=== PATIENT | male | born 1995 | race Caucasian/White ===

== ENCOUNTER 2018-01-06 18:23 | Emergency (ER) | payer OTHER ==
[2018-01-06] MEDS ORDERED: Sodium Chloride 0.9% 1,000 ML IV ONE (19:54)
[2018-01-06] MEDS ORDERED: Ondansetron 4 MG/2 ML SDV IV ONE (19:56)
[2018-01-06 20:30] LABS: ANION GAP 17.2
--- NOTE | 2018-01-06 21:01 | EDM.PDOC ---
ED HPI GENERAL MEDICAL PROBLEM - General Chief Complaint: Exposure to Heat or Cold Stated Complaint: HEET INJURY Time Seen by Provider: 01/06/18 20:15 Source of Information: Reports: Patient History Limitations: Reports: No Limitations - History of Present Illness INITIAL COMMENTS - FREE TEXT/NARRATIVE: c/o still feeling weak, nausea improved from presentation, [employer], training exercise today, ran 6 miles collapsed after, Temp reported to have been 103, 2 liters IVF given at Camp then sent to ED, Muscle cramps still, but better. - Related Data Allergies Allergy/AdvReac Type Severity Reaction Status Date / Time No Known Allergies Allergy Verified 01/06/18 19:41 Home Meds: Home Meds . [No Known Home Meds] 01/06/18 [History] Past Medical History - Past Health History Medical/Surgical History: Denies Medical/Surgical History Social & Family History - Tobacco Use Smoking Status *Q: Never Smoker Second Hand Smoke Exposure: No - Recreational Drug Use Recreational Drug Use: No ED ROS GENERAL - Review of Systems Review Of Systems: ROS reveals no pertinent complaints other than HPI. ED EXAM, GENERAL - Physical Exam Exam: See Below Exam Limited By: No Limitations General Appearance: Lethargic (arouses easily,) Eye Exam: Bilateral Eye: Abnormal Pupil, EOMI, PERRL (3mm) Ears: Normal External Exam Nose: Normal Inspection, Normal Mucosa Throat/Mouth: Normal Inspection, Normal Lips Head: Atraumatic, Normocephalic Neck: Normal Inspection Respiratory/Chest: No Respiratory Distress, Lungs Clear Cardiovascular: Normal Peripheral Pulses, Regular Rate, Rhythm GI/Abdominal: Normal Bowel Sounds, Soft, Non-Tender Extremities: Normal Inspection, Normal Range of Motion, Pallor Neurological: Alert, Oriented, Normal Cognition, No Motor/Sensory Deficits Psychiatric: Normal Affect Skin Exam: Warm, Dry, Intact, Other (face flushed, pallor central and extremities, no mottling, tinea bilateral feet, blistering right great toe) Course - Vital Signs Last Recorded V/S: Last Vital Signs Temp 97.9 F 01/06/18 19:35 Pulse 90 01/06/18 19:35 Resp 18 01/06/18 19:35 BP 117/66 01/06/18 19:35 Pulse Ox 99 01/06/18 19:35 Orthostatic Blood Pressure [ 110/65 Standing] Orthostatic Blood Pressure [ 123/69 Sitting] Orthostatic Blood Pressure [ 116/55 Supine] - Orders/Labs/Meds Orders: Active Orders 24 hr Category Date Time Status EKG 12 Lead [EKG Documentation Completion] [RC] URGENT Care 01/06/18 20:41 Active Orthostatic Vital Signs [RC] ASDIRECTED Care 01/06/18 19:56 Active UA W/MICROSCOPIC [URIN] Stat Lab 01/06/18 21:10 Ordered Labs: Laboratory Tests 01/06/18 01/06/18 01/06/18 Range/Units 20:00 20:00 20:00 WBC 27.5 H* (5.0-10.0) 10^3/uL RBC 5.24 (4.6-6.2) 10^6/uL Hgb 14.3 (14.0-18.0) g/dL Hct 42.4 (40.0-54.0) % MCV 80.9 (80-100) fL MCH 27.3 (27.0-34.0) pg MCHC 33.7 (33.0-35.0) g/dL Plt Count 221 (150-450) 10^3/uL Neut % (Auto) 88.4 H (42.2-75.2) % Lymph % (Auto) 4.9 L (20.5-50.1) % [place] % (Auto) 6.6 (2-8) % Eos % (Auto) 0.0 L (1.0-3.0) % Baso % (Auto) 0.1 (0.0-1.0) % Add Manual Diff Yes Neutrophils % (Manual) 71 (42-75) % Band Neutrophils % 16 % Lymphocytes % (Manual) 6 L (20-50) % Atypical Lymphs % 0 % Monocytes % (Manual) 6 (2-8) % Eosinophils % (Manual) 1 (1-3) % Basophils % (Manual) 0 Sodium 134 L (135-145) mmol/L Potassium 4.2 (3.6-5.0) mmol/L Chloride 99 L (101-111) mmol/L Carbon Dioxide 22.0 (21.0-31.0) mmol/L Anion Gap 17.2 BUN 26 H (7-18) mg/dL Creatinine 2.2 H (0.6-1.3) mg/dL Est Cr Clr Drug Dosing 47.13 mL/min Estimated GFR (MDRD) 37 BUN/Creatinine Ratio 11.81 Glucose 111 H (74-105) mg/dL Calcium 9.9 (8.4-10.2) mg/dl Magnesium 2.0 (1.8-2.5) mg/dL Total Bilirubin 2.4 H (0.2-1.0) mg/dL AST 60 H (10-42) IU/L ALT 25 (10-60) IU/L Alkaline Phosphatase 56 (42-121) IU/L Creatine Kinase 2651 H (26-174) IU/L Troponin I (0.00-0.02) ng/ml Total Protein 7.5 (6.7-8.2) g/dl Albumin 5.2 (3.2-5.5) g/dl Globulin 2.3 Albumin/Globulin Ratio 2.26 Amylase 111 H (28-100) U/L Lipase 24 (22-51) U/L Urine Color (YELLOW) Urine Appearance (CLEAR) Urine pH (5.0-9.0) Ur Specific [place] (1.005-1.030) Urine Protein (NEGATIVE) Urine Glucose (UA) (NEGATIVE) Urine Ketones (NEGATIVE) Urine Occult Blood (NEGATIVE) Urine Nitrite (NEGATIVE) Urine Bilirubin (NEGATIVE) Urine Urobilinogen (0.2-1.0) mg/dL Ur Leukocyte Esterase (NEGATIVE) Urine RBC /HPF Urine WBC (0-5/HPF) /HPF Ur Epithelial Cells /HPF Urine Bacteria (0-FEW/HPF) /HPF Hyaline Casts /LPF 01/06/18 01/06/18 Range/Units 20:00 21:10 WBC (5.0-10.0) 10^3/uL RBC (4.6-6.2) 10^6/uL Hgb (14.0-18.0) g/dL Hct (40.0-54.0) % MCV (80-100) fL MCH (27.0-34.0) pg MCHC (33.0-35.0) g/dL Plt Count (150-450) 10^3/uL Neut % (Auto) (42.2-75.2) % Lymph % (Auto) (20.5-50.1) % [place] % (Auto) (2-8) % Eos % (Auto) (1.0-3.0) % Baso % (Auto) (0.0-1.0) % Add Manual Diff Neutrophils % (Manual) (42-75) % Band Neutrophils % % Lymphocytes % (Manual) (20-50) % Atypical Lymphs % % Monocytes % (Manual) (2-8) % Eosinophils % (Manual) (1-3) % Basophils % (Manual) Sodium (135-145) mmol/L Potassium (3.6-5.0) mmol/L Chloride (101-111) mmol/L Carbon Dioxide (21.0-31.0) mmol/L Anion Gap BUN (7-18) mg/dL Creatinine (0.6-1.3) mg/dL Est Cr Clr Drug Dosing mL/min Estimated GFR (MDRD) BUN/Creatinine Ratio Glucose (74-105) mg/dL Calcium (8.4-10.2) mg/dl Magnesium (1.8-2.5) mg/dL Total Bilirubin (0.2-1.0) mg/dL AST (10-42) IU/L ALT (10-60) IU/L Alkaline Phosphatase (42-121) IU/L Creatine Kinase (26-174) IU/L Troponin I 0.03 H* (0.00-0.02) ng/ml Total Protein (6.7-8.2) g/dl Albumin (3.2-5.5) g/dl Globulin Albumin/Globulin Ratio Amylase (28-100) U/L Lipase (22-51) U/L Urine Color Yellow (YELLOW) Urine Appearance Slightly cloudy (CLEAR) Urine pH 5.5 (5.0-9.0) Ur Specific [place] 1.020 (1.005-1.030) Urine Protein 100 H (NEGATIVE) Urine Glucose (UA) Negative (NEGATIVE) Urine Ketones 40 H (NEGATIVE) Urine Occult Blood Large H (NEGATIVE) Urine Nitrite Negative (NEGATIVE) Urine Bilirubin Negative (NEGATIVE) Urine Urobilinogen 0.2 (0.2-1.0) mg/dL Ur Leukocyte Esterase Negative (NEGATIVE) Urine RBC 0-5 /HPF Urine WBC 0-5 (0-5/HPF) /HPF Ur Epithelial Cells Few /HPF Urine Bacteria Moderate H (0-FEW/HPF) /HPF Hyaline Casts Few H /LPF Meds: Medications Discontinued Medications Generic Name Dose Route Start Last Admin Trade Name Juan J PRN Reason Stop Dose Admin Sodium Chloride 1,000 mls @ 999 mls/hr 01/06/18 19:54 01/06/18 20:03 Normal Saline IV 01/06/18 20:54 999 mls/hr .BOLUS ONE Administration Sodium Chloride 1,000 mls @ 200 mls/hr 01/06/18 21:15 01/06/18 21:16 Normal Saline IV 200 mls/hr ASDIRECTED KISHA Administration Ondansetron HCl 4 mg 01/06/18 19:56 01/06/18 20:05 Zofran IV 01/06/18 19:57 4 mg ONETIME ONE Administration - Re-Assessments/Exams Free Text/Narrative Re-Assessment/Exam: 01/07/18 03:[address] Borja, [facility] hospitalist recommend higher level of care, Dr Renee Villar accepting of patient in transfer. Departure - Departure Time of Disposition: 22:40 Disposition: DC/Tfer to Acute Hospital 02 Condition: Good Clinical Impression: Dehydration after exertion Heat exhaustion Qualifiers: Encounter type: initial encounter Qualified Code(s): T67.5XXA - Heat exhaustion , unspecified, initial encounter Rhabdomyolysis Qualifiers: Rhabdomyolysis type: non-traumatic Qualified Code(s): M62.82 - Rhabdomyolysis - Discharge Information *PRESCRIPTION DRUG MONITORING PROGRAM REVIEWED*: Not Applicable Referrals: PCP,Unobtain [Primary Care Provider] - Forms: ED Department Discharge - My Orders Last 24 Hours: My Active Orders 01/06/18 19:56 Orthostatic Vital Signs [RC] ASDIRECTED 01/06/18 20:41 EKG 12 Lead [EKG Documentation Completion] [RC] URGENT 01/06/18 21:10 UA W/MICROSCOPIC [URIN] Stat - Assessment/Plan Last 24 Hours: My Active Orders 01/06/18 19:56 Orthostatic Vital Signs [RC] ASDIRECTED 01/06/18 20:41 EKG 12 Lead [EKG Documentation Completion] [RC] URGENT 01/06/18 21:10 UA W/MICROSCOPIC [URIN] Stat
[2018-01-06] MEDS ORDERED: Sodium Chloride 0.9% 1,000 ML IV SCH (21:15)
--- NOTE | 2018-01-11 09:26 | EKG ---
01/06/2018- [facility] SENIOR - FINDINGS: A 12-lead EKG shows normal sinus rhythm with no significant ST elevation or ST depression noted on this 12-lead EKG except for nonspecific ST-T wave changes noted on leads V2 and V3 and lateral leads V4 and V5. [facility] /[id number]
== END 2018-01-06 22:43 ==
LOC: DL.ED 18:23
DX: T67.5XXA Heat exhaustion, unspecified, initial encounter (principal); M62.82 Rhabdomyolysis; E86.0 Dehydration
CPT/HCPCS: 36415; 80053; 81001; 82150; 82550; 83690; 83735; 84484; 85025; 93005; 93010; 96361; 96374; 99285; J2405; J7030; 99284

== ENCOUNTER 2025-01-12 08:42 | Emergency (ER) | payer OTHER ==
[2025-01-12] MEDS: Ketorolac 30 MG/ML SDV IM ONE (09:20)
== END 2025-01-12 09:38 | disposition home or self-care (01) ==
LOC: DL.ED 08:42
DX: M62.830 Muscle spasm of back (principal)
CPT/HCPCS: 96372; 99282; 99283; A9270-GY; J1885